=== PATIENT | male | born 1970 | race African-American/Black ===

== ENCOUNTER 2022-08-06 07:46 | Emergency (ER) | payer MEDICAID ==
[~2022-08-06] VITALS: Ht 167.6 cm; Wt 75.0 kg
[2022-08-06 07:53] VITALS: BP 130/84
[2022-08-06] MEDS ORDERED: IBUP-2029 MT (08:25)
== END 2022-08-06 09:27 | disposition home or self-care (01) ==
LOC: ER 07:58
DX: B34.9 Viral infection, unspecified (principal); M25.511 Pain in right shoulder; G62.9 Polyneuropathy, unspecified; Z98.890 Other specified postprocedural states; Z91.048 Other nonmedicinal substance allergy status
CPT/HCPCS: 71045; 99283

== ENCOUNTER 2024-04-17 00:37 | Emergency (ER) | payer MEDICAID, OTHER ==
[~2024-04-17] VITALS: Ht 170.2 cm; Wt 68.0 kg
[~2024-04-17 00:37] MED LIST: IBUP-2029 MT
[2024-04-17 00:55] VITALS: BP 123/82; PULSE 86; RESP 16; TEMP 98.5; O2SAT 100
[2024-04-17] MEDS ORDERED: TETANUS, DIPHTHERIA, PERTUSSIS VAC/PF 0.5ML (>10YR OLD) IM ONE (03:15)
[2024-04-17] MEDS: ACETAMINOPHEN 325MG TABLET PO ONE (04:47)
[2024-04-17] MEDS: TETANUS, DIPHTHERIA, PERTUSSIS VAC/PF 0.5ML (>10YR OLD) IM ONE (05:15)
[2024-04-17] MEDS: LIDOCAINE HCL/PF 1% 10 MG/ML 5ML VIAL INFIL ONE (05:50)
[2024-04-17] MEDS: BACITRACIN ZINC OINT UDPKT TOP ONE (05:50)
[2024-04-17] MEDS ORDERED: TOPUD PO (07:37)
== END 2024-04-17 08:03 | disposition home or self-care (01) ==
LOC: ER 00:37
DX: S01.412A Laceration without foreign body of left cheek and temporomandibular area, initial encounter (principal); F32.9 Major depressive disorder, single episode, unspecified; Y08.89XA Assault by other specified means, initial encounter; Y93.89 Activity, other specified; Y92.89 Other specified places as the place of occurrence of the external cause; Y99.8 Other external cause status
CPT/HCPCS: 99284; 70450; 70486; 12011; J3490

== ENCOUNTER 2024-07-17 05:21 | Emergency (ER) | payer MEDICAID, OTHER ==
[~2024-07-17] VITALS: Ht 170.2 cm; Wt 67.0 kg
[~2024-07-17 05:21] MED LIST changes: +TOPUD PO
[2024-07-17 05:27] VITALS: BP 132/69; PULSE 90; TEMP 98.1; O2SAT 99
[2024-07-17] MEDS: ACETAMINOPHEN 325MG TABLET PO ONE (06:05)
[2024-07-17 06:27] VITALS: RESP 16
== END 2024-07-17 06:26 | disposition home or self-care (01) ==
LOC: ER 05:21
DX: M25.571 Pain in right ankle and joints of right foot (principal); F32.A Depression, unspecified; Z79.899 Other long term (current) drug therapy
CPT/HCPCS: 73590; 73620; 99284

== ENCOUNTER 2024-07-21 08:13 | Emergency (ER) | payer OTHER ==
[~2024-07-21] VITALS: Ht 170.2 cm; Wt 67.0 kg
[2024-07-21 08:18] VITALS: TEMP 98.1; O2SAT 98
[2024-07-21] MEDS: HYDROCODONE/ACETAMINOPHEN 5/325MG TABLET PO ONE (10:12)
[2024-07-21] MEDS: KETOROLAC 30MG/ML VIAL IM ONE (10:12)
[2024-07-21] MEDS: TETANUS, DIPHTHERIA, PERTUSSIS VAC/PF 0.5ML (>10YR OLD) IM ONE (10:28)
[2024-07-21] MEDS ORDERED: IBUP-2028 MT (10:42)
[2024-07-21] MEDS ORDERED: CEPH500T MT (10:42)
[2024-07-21] MEDS ORDERED: HYDR-4001 MT (10:42)
[2024-07-21] MEDS ORDERED: SULF1TAB48 MT (10:42)
[2024-07-21 11:08] VITALS: BP 142/74; PULSE 74; RESP 16; O2SAT 99
== END 2024-07-21 11:11 | disposition home or self-care (01) ==
LOC: ER 08:37
DX: M79.661 Pain in right lower leg (principal); F41.9 Anxiety disorder, unspecified; F32.A Depression, unspecified; Z91.048 Other nonmedicinal substance allergy status
CPT/HCPCS: 73590; 73630; 96372; 99284; J1885; Z7610